=== PATIENT | male | born 1960 | race Caucasian/White ===

== ENCOUNTER → 2016-12-01 | Outpatient (CLI) | payer MEDICARE, BC ==
--- NOTE | 2016-12-01 11:34 | ECHOS ---
DATE OF SERVICE: 12/01/2016 AGE: 55Y SEX: M HT: 66' WT: 250 lbs. Protocol North: X Others: Stress Echo Stage: 2 Dur. of Exercise: 4:00 *Heart Rate Blood Pressure *Rest: 98 Rest: 102/67 * *Max. Achieved: 147 Maximum BP: 186/91 85% PMHR: 139 100% PMHR: 163 *METS: 5.8 INDICATIONS: Chest pain. MEDICATIONS: Aspirin, Spiriva, Dulera, metformin, glimepiride, amlodipine, losartan, amoxicillin, hydroxyurea. CLINICAL INFORMATION: Chest pain, hypertension, diabetes and family history of coronary artery disease, COPD, resting ECG showed moderate exogenous obesity. Resting ECG shows sinus rhythm, rate of 98 beats per minute, RI interval of 0.16, QRS 0.08, normal ST-T waves. Utilizing a standard North protocol, a symptom-limited treadmill test was performed. Patient exercised for total of 4 minutes, attained a peak heart rate of 147 beats per minute, which is approximately 90% of predicted functional heart rate without any chest pain or pressure. Exercise test was terminated because of fatigue and shortness of breath. No ST segment deviations indicative of ischemia. Baseline images show normal thickening and contractility. Postexercise images shows improved contractility and thickening except for basal inferior wall shows hypokinesis suggestive of stress-induced ischemia. Clinical correlation is suggested. Patient also has a limited exercise capacity. IMPRESSION: 1. Small area of basal segment, which is hypokinetic and post exercise suggestive of underlying ischemia. Clinical correlation is suggested. 2. Patient has very limited exercise capacity, exercised on the North protocol only for 4 minutes, which represents approximately mid-activity of about 5 METs.
== END | disposition home or self-care (01) ==
LOC: RADNMMAIN 09:53
PROVIDERS: ATTEND Family Medicine
DX: R07.89 Other chest pain (principal)
CPT/HCPCS: 93017; C8928; Q9957; 93350

== ENCOUNTER → 2018-01-18 | Outpatient (CLI) | payer MEDICARE, BC ==
--- NOTE | 2018-01-18 14:55 | MR ---
EXAMINATION TYPE: MR shoulder LT wo con DATE OF EXAM: 01/18/2018 COMPARISON: NONE HISTORY: Left shoulder pain TECHNIQUE: Multiplanar, multisequence imaging of the left shoulder is performed without contrast. FINDINGS: Rotator Cuff: There is abnormal thickening of the rotator cuff with abnormal increased signal within the substance of the rotator cuff, partial thickness undersurface or rim rent tear of the rotator cuf f tendon near its insertion. Acromioclavicular Joint: Hypertrophic change of the acromioclavicular joint causes mass effect on the musculotendinous junction of supraspinatus, there is a distal acromial spur. Glenohumeral Joint: Intact. Some mild arthropathy is present, there is hypertrophic change of the hum eral head Labrum: Superior labrum is somewhat irregular in appearance, some linear increased signal on T2-weigh thony sequences is present within the substance could be indicative of SLAP lesion or possibly degenera tive fraying. Biceps Tendon: Long head of biceps tendon shows a normal position in the bicipital groove. Small amou nt of fluid present around the tendon Bone marrow signal: There is pseudocyst formation in the humeral head anteriorly Other: Fluid signal is present in the subacromial subdeltoid bursa IMPRESSION: Tendinopathy, partial-thickness tear of the rotator cuff as described, correlate for impingement. Add itional findings above.
== END ==
LOC: RADMRIMAIN 10:27
PROVIDERS: ATTEND Family Medicine
DX: M75.112 Incomplete rotator cuff tear or rupture of left shoulder, not specified as traumatic (principal); M67.922 Unspecified disorder of synovium and tendon, left upper arm

== ENCOUNTER → 2018-03-29 | Outpatient (CLI) | payer MEDICARE, BC ==
--- NOTE | 2018-03-29 15:39 | XR ---
Cervical spine HISTORY: Neck pain 5 views of the cervical spine correlated to MRI cord survey dated 07/29/2011 There is multilevel spondylosis. Loss of disc height present at C4-5, C5-6. Cervical vertebral bodies show preserved height and alignment. There is multilevel facet arthropathy present. Mild foraminal e ncroachment suspected at C5-6 bilaterally, right-sided C4-5 due to lateral extension of endplate disc complexes. IMPRESSION: Degenerative disc disease as described, consider cervical MRI.
== END | disposition home or self-care (01) ==
LOC: RADXRMAIN 13:02
PROVIDERS: ATTEND Nurse Practitioner
DX: M50.321 Other cervical disc degeneration at C4-C5 level (principal)
CPT/HCPCS: 72050

== ENCOUNTER → 2018-07-27 | Outpatient (CLI) | payer MEDICARE, BC ==
--- NOTE | 2018-07-27 08:53 | MR ---
MRI CERVICAL SPINE: CLINICAL HISTORY: Cervicalgia per order. Neck pain into right arm for 13 months per patient. TECHNIQUE: Multiplanar, multisequence imaging of the cervical spine is performed without IV contrast. COMPARISON: MRI spinal cord survey July 29, 2011 cervical spine x-ray March 29, 2018.. FINDINGS: Sagittal images of the cervical spine show the craniocervical junction to remain within nor mal limits. The cervical and upper thoracic spinal cord remains normal in course, caliber, and signa l. There is stable slight grade 1 retrolisthesis of C5 on C6. The vertebral body heights remain norm al. Mild disc space narrowing C4-C5 level is present. More moderate disc space narrowing C5-C6 level is noted . Posterior disc herniations at C3-C4 through C5-C6 level are present on sagittal images. Mi ld anterior spurring in the mid cervical spine is present. The bone marrow signal intensity is overal l heterogeneous with small hemangioma at C6 vertebral body level. Axial images show C2-C3 level to appear within normal limits. Axial images at the C3-C4 level shows central disc protrusion effacing anterior thecal sac, there is asymmetric mild to moderate left-sided neural foraminal narrowing due to uncovertebral facet degenera tive change. Axial images at C4-C5 level show broad-based posterior disc protrusion effacing anterior thecal sac, there is uncovertebral facet degenerative changes worse on the left, there is moderate to advanced le ft-sided neural foraminal narrowing and mild to moderate right-sided neural foraminal narrowing noted . Axial images at the C5-C6 level show spondylolisthesis and central disc protrusion effacing anterior thecal sac up to ventral surface of spinal cord on axial image 25, in addition there is a foraminal d isc herniation causing asymmetric moderate to advanced left-sided neural foraminal narrowing and same image. Right-sided neural foramina shows mild to moderate narrowing. Axial images at the C6-C7 and C7-T1 levels are felt within normal limits. IMPRESSION: Multilevel degenerative changes in the upper to mid cervical spine as detailed above with most prominent findings noted at C5-C6 level.
== END | disposition home or self-care (01) ==
LOC: RADMRIMAIN 08:02
PROVIDERS: ATTEND Family Medicine
DX: M47.812 Spondylosis without myelopathy or radiculopathy, cervical region (principal)
CPT/HCPCS: 72141

== ENCOUNTER → 2018-09-25 | Outpatient (CLI) | payer MEDICARE, BC ==
[2018-09-25 12:34] VITALS: BP 129/85; PULSE 110; RESP 16; TEMP 98.1
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
== END ==
LOC: PNWHC3 12:16
PROVIDERS: ATTEND Hospitalist
DX: M54.12 Radiculopathy, cervical region (principal); I10 Essential (primary) hypertension; E11.9 Type 2 diabetes mellitus without complications; J44.9 Chronic obstructive pulmonary disease, unspecified; M19.90 Unspecified osteoarthritis, unspecified site; Z87.891 Personal history of nicotine dependence; Z79.82 Long term (current) use of aspirin; Z79.899 Other long term (current) drug therapy; Z79.84 Long term (current) use of oral hypoglycemic drugs; Z88.5 Allergy status to narcotic agent
CPT/HCPCS: 99211

== ENCOUNTER 2018-10-08 07:35 | Day surgery (SDC) | payer MEDICARE, BC ==
[2018-10-03 13:51] VITALS: BMI 36.3
[2018-10-08 08:17] VITALS: RESP 16; TEMP 96.6
[2018-10-08] MEDS ORDERED: LACTATED RINGERS 1,000 ML IV ONE (08:18)
[2018-10-08] MEDS ORDERED: LIDOCAINE 1% 20 ML VIAL (10MG/ML) FOR IV START INTRADERMA ONE (08:18)
[2018-10-08 08:19] LABS: Glucose,Whole Blood 152 mg/dL (75-99)
--- NOTE | 2018-10-08 09:34 | P.PCN ---
Date of Procedure: 10/08/18 Procedure(s) Performed: . PROCEDURE 1. Cervical epidural steroid injection under fluoroscopic guidance, C7-T1 2. Cervical epidurogram. PREOPERATIVE DIAGNOSIS: 1- Cervical radiculopathy. POSTOPERATIVE DIAGNOSIS: : 1-Cervical radiculopathy. ANESTHESIA: Local anesthesia with lidocaine 1 % , and moderate sedation, with Versed 2 mg and Fentanyl 50 mcg. EBL 0 PROCEDURE INDICATION: The patient with neck pain and radiculitis unresponsive to conservative treatment consents for procedure. PROCEDURE DESCRIPTION / TECHNIQUE: The patient was seen and identified in the preoperative area. Risks, benefits, complications, including but not limited to infections ,bleeding , allergic reactions to the medications ,and not complete pain releife, and alternatives were discussed with the patient, the patient agreed to proceed with the procedure and signed the consent. Patient was taken to the OR and time out was completed. The patient was placed in the prone position on the procedure table. A pillow was placed under the patients chest to increase the cervical interlaminar space. The cervical area was prepped and draped in the usual sterile fashion. Vital signs were closely monitored during the procedure. Conscious sedation was used during the procedure to decrease patients anxiety. Using anterior-posterior fluoroscopy, the C7-T1 interlaminar space was identified and the skin over this site was marked and then infiltrated with 1% lidocaine subcutaneously. Subsequently, a 20-gauge 3-1/2-inch Tuohy epidural needle was inserted and advanced toward the epidural space by means of the `` hanging-drop technique and guided by AP and lateral fluoroscopy. The correct needle position in the epidural space was verified with the injection of 2 mL of the water soluble contrast dye Isovue-200 and observing an excellent epidurogram with the epidural spread of the dye, after negative aspiration for blood and CSF and in the absence of paresthesias. Again after negative aspiration, mixture containing 10 mg Dexamethasone and 2 ml of preservative- free normal saline injected and a washout of epidurogram was seen. Needle was withdrawn intact, skin was cleansed, and bandages were applied. Complications= none. Disposition= patient was placed in supine position and transferred to the recovery room area in stable condition and there was no evidence of upper or lower extremity motor or sensory deficit after the procedure patient was discharged from recovery room after discharge criteria met and home discharge instructions was given by the staff and patient will follow with the pain clinic in 2-4 weeks
[2018-10-08] MEDS ORDERED: IV FLUID CONTINUATION 1,000 ML IV ONE (09:36)
[2018-10-08 09:55] VITALS: BP 115/51; PULSE 86
--- NOTE | 2018-10-08 11:02 | FL ---
Fluoroscopy HISTORY: Pain 5 seconds fluoroscopy time supplied to the referring clinician. 1 intraoperative C-arm images docume nt the procedure. See dictated report from anesthesia.
== END 2018-10-08 10:11 | disposition home or self-care (01) ==
LOC: ORPAIN 07:35
PROVIDERS: ATTEND Specialist
DX: M54.12 Radiculopathy, cervical region (principal); Z88.5 Allergy status to narcotic agent
CPT/HCPCS: 62321; J2250; J1100; J3010; Q9966; 62323; 99152

== ENCOUNTER 2018-10-22 08:00 | Day surgery (SDC) | payer MEDICARE, BC ==
[2018-10-16 12:41] VITALS: BMI 36.3
[2018-10-22] MEDS ORDERED: SODIUM CHLORIDE 0.9% 500 ML 500 ML IV SCH (08:30)
[2018-10-22] MEDS ORDERED: LIDOCAINE 1% 20 ML VIAL (10MG/ML) FOR IV START INTRADERMA ONE (08:40)
[2018-10-22] MEDS ORDERED: LACTATED RINGERS 1,000 ML IV ONE (08:40)
[2018-10-22 08:44] LABS: Glucose,Whole Blood 180 mg/dL (75-99)
[2018-10-22 08:45] VITALS: RESP 16; TEMP 97.2
--- NOTE | 2018-10-22 08:52 | P.GSHP ---
History of Present Illness H&P Date: 10/22/18 57-year-old male scheduled for cervical epidural steroid injection. Pain is 6 out of 10 in severity. He has radicular pain bilateral extremities. Physical Exam : CVS: Regular rate and rhythm, no peripheral edema Pulmonary: Nonlabored, no wheezing Plan: Epidural steroid injection today. Past Medical History Past Medical History: COPD, Diabetes Mellitus, Hypertension, Sleep Apnea/CPAP/BIPAP Additional Past Medical History / Comment(s): USES C-PAP MACHINE, STATES HE SEES DR VIEIRA FOR HIS WBC'S., NECK PAIN. History of Any Multi-Drug Resistant Organisms: None Reported Past Surgical History: Joint Replacement, Orthopedic Surgery Additional Past Surgical History / Comment(s): BONE MARROW BX. ORIF RT KNEE X3., TOTAL RIGHT HIP, PAIN CLINIC PROCEDURES Past Anesthesia/Blood Transfusion Reactions: No Reported Reaction Smoking Status: Current some day smoker - Past Family History Mother Family Medical History: Cancer Additional Family Medical History / Comment(s): BREAST CANCER Father Additional Family Medical History / Comment(s): BRAIN ANEURYSM Medications and Allergies Home Medications Medication Instructions Recorded Confirmed Type Aspirin 81 mg PO DAILY 06/05/14 10/16/18 History Mometasone/Formoterol [Dulera 200 2 puff INHALATION BID 06/05/14 10/16/18 History Mcg/5 Mcg Inhaler] Tiotropium 18 Mcg/Puff [Spiriva] 1 puff INHALATION DAILY 06/05/14 10/16/18 History amLODIPine BESYLATE [Amlodipine 5 mg PO AC-SUPPER 06/05/14 10/16/18 History Besylate] metFORMIN HCL [Glucophage] 1,000 mg PO BID 06/06/14 10/16/18 History Hydroxyurea [Hydrea] 50 mg PO TID 06/20/14 10/16/18 History Exenatide Microspheres [Bydureon 2 mg SQ DAILY 09/25/18 10/16/18 History Pen] Losartan/Hydrochlorothiazide 1 each PO DAILY 09/25/18 10/16/18 History [Losartan-Hctz 100-25 mg Tab] Pregabalin [Lyrica] 75 mg PO BID 09/25/18 10/16/18 History Albuterol Inhaler [Ventolin Hfa 1 - 2 puff INHALATION RT-Q6H PRN 10/03/18 10/16/18 History Inhaler] Glimepiride [Amaryl] 8 mg PO PC-SUPPER 10/03/18 10/16/18 History Allergies Allergy/AdvReac Type Severity Reaction Status Date / Time morphine AdvReac Rash/Hives Verified 10/16/18 12:36
--- NOTE | 2018-10-22 09:26 | P.PCN ---
Date of Procedure: 10/22/18 Description of Procedure: PROCEDURE 1. Cervical epidural steroid injection under fluoroscopic guidance, C7-T1 #2 2. Cervical epidurogram. PREOPERATIVE DIAGNOSIS: 1- Cervical radiculopathy. POSTOPERATIVE DIAGNOSIS: : 1-Cervical radiculopathy. ANESTHESIA: Local anesthesia with lidocaine 1 % , and moderate sedation, with Versed 2 mg and Fentanyl 50 mcg. EBL 0 PROCEDURE INDICATION: The patient with neck pain and radiculitis unresponsive to conservative treatment consents for procedure. PROCEDURE DESCRIPTION / TECHNIQUE: The patient was seen and identified in the preoperative area. Risks, benefits, complications, including but not limited to infections ,bleeding , allergic reactions to the medications ,and not complete pain releife, and alternatives were discussed with the patient, the patient agreed to proceed with the procedure and signed the consent. Patient was taken to the OR and time out was completed. The patient was placed in the prone position on the procedure table. A pillow was placed under the patients chest to increase the cervical interlaminar space. The cervical area was prepped and draped in the usual sterile fashion. Vital signs were closely monitored during the procedure. Conscious sedation was used during the procedure to decrease patients anxiety. Using anterior-posterior fluoroscopy, the C7-T1 interlaminar space was identified and the skin over this site was marked and then infiltrated with 1% lidocaine subcutaneously. Subsequently, a 20-gauge 3-1/2-inch Tuohy epidural needle was inserted and advanced toward the epidural space by means of the ``hanging-drop technique and guided by AP and lateral fluoroscopy. The correct needle position in the epidural space was verified with the injection of 2 mL of the water soluble contrast dye Isovue-200 and observing an excellent epidurogram with the epidural spread of the dye, after negative aspiration for blood and CSF and in the absence of paresthesias. Again after negative aspiration, mixture containing 10 mg Dexamethasone and 2 ml of preservative- free normal saline injected and a washout of epidurogram was seen. Needle was withdrawn intact, skin was cleansed, and bandages were applied. Complications= none. Disposition= patient was placed in supine position and transferred to the recovery room area in stable condition and there was no evidence of upper or lower extremity motor or sensory deficit after the procedure patient was discharged from recovery room after discharge criteria met and home discharge instructions was given by the staff and patient will follow with the pain clinic in 2-4 weeks
[2018-10-22] MEDS ORDERED: IV FLUID CONTINUATION 1,000 ML IV ONE (09:50)
--- NOTE | 2018-10-22 09:56 | FL ---
EXAMINATION TYPE: FL guided pain mgmt statistic DATE OF EXAM: 10/22/2018 CLINICAL HISTORY: Neck pain. TECHNIQUE: Fluoroscopy. COMPARISON: None. FINDINGS: Fluoroscopic guidance was provided during pain relief procedure performed by Dr. Weeks . A total of 39 seconds of fluoroscopic time was utilized during the procedure and 1 spot images are a cquired. Images acquired shows needle localization of the cervical spine. IMPRESSION: As Above.
[2018-10-22 10:12] VITALS: BP 124/72; PULSE 78
== END 2018-10-22 10:18 | disposition home or self-care (01) ==
LOC: ORPAIN 08:00
PROVIDERS: ATTEND Anesthesiology
DX: M54.12 Radiculopathy, cervical region (principal); J44.9 Chronic obstructive pulmonary disease, unspecified; E11.9 Type 2 diabetes mellitus without complications; I10 Essential (primary) hypertension; G47.30 Sleep apnea, unspecified; Z99.89 Dependence on other enabling machines and devices; Z96.641 Presence of right artificial hip joint; Z80.3 Family history of malignant neoplasm of breast; F17.200 Nicotine dependence, unspecified, uncomplicated; Z79.84 Long term (current) use of oral hypoglycemic drugs; Z79.82 Long term (current) use of aspirin; Z79.899 Other long term (current) drug therapy; Z88.5 Allergy status to narcotic agent
CPT/HCPCS: 62321; J2250; J1100; J3010; Q9966; 99152

== ENCOUNTER 2018-11-06 07:53 | Day surgery (SDC) | payer MEDICARE, BC ==
[2018-10-30 10:52] VITALS: BMI 37.1
[2018-11-06 08:09] VITALS: RESP 16; TEMP 96.3
[2018-11-06 08:14] LABS: Glucose,Whole Blood 157 mg/dL (75-99)
--- NOTE | 2018-11-06 08:36 | P.PCN ---
Date of Procedure: 11/06/18 Operative Findings: . PROCEDURE 1. Cervical epidural steroid injection under fluoroscopic guidance, C7-T1 2. Cervical epidurogram. PREOPERATIVE DIAGNOSIS: 1- Cervical Degenerative Disc Diseases 2- Cervical radiculopathy., 3-cervical spondylosis with cervical Facet arthropathy without myelopathy POSTOPERATIVE DIAGNOSIS: : 1- Cervical Degenerative Disc Diseases , 2- Cervical radiculopathy. 3-,cervical spondylosis with cervical Facet arthropathy without myelopathy ANESTHESIA: Local anesthesia with 1% lidocaine EBL 0 PROCEDURE INDICATION: The patient with neck pain and radiculitis unresponsive to conservative treatment consents for procedure. PROCEDURE DESCRIPTION / TECHNIQUE: The patient was seen and identified in the preoperative area. Risks, benefits, complications, including but not limited to infections ,bleeding , allergic reactions to the medications ,and not complete pain releife, and alternatives were discussed with the patient, the patient agreed to proceed with the procedure and signed the consent. Patient was taken to the OR and time out was completed. The patient was placed in the prone position on the procedure table. A pillow was placed under the patients chest to increase the cervical interlaminar space. The cervical area was prepped and draped in the usual sterile fashion. Vital signs were closely monitored during the procedure. Conscious sedation was used during the procedure to decrease patients anxiety. Using anterior-posterior fluoroscopy, the C7-T1 interlaminar space was identified and the skin over this site was marked and then infiltrated with 1% lidocaine subcutaneously. Subsequently, a 20-gauge 3-1/2-inch Tuohy epidural needle was inserted and advanced toward the epidural space by means of the [id number] technique and guided by AP and lateral fluoroscopy. The correct needle position in the epidural space was verified with the injection of 1 mL of the water soluble contrast dye [id number]-180 and observing an excellent epidurogram with the epidural spread of the dye, after negative aspiration for blood and CSF and in the absence of paresthesias. Again after negative aspiration, mixture containing 10 mg Dexamethasone and 2 ml of preservative- free normal saline injected and a washout of epidurogram was seen. Needle was withdrawn intact, skin was cleansed, and bandages were applied. Complications= none. Disposition= patient was placed in supine position and transferred to the recovery room area in stable condition and there was no evidence of upper or lower extremity motor or sensory deficit after the procedure patient was discharged from recovery room after discharge criteria met and home discharge instructions was given by the staff and patient will follow with the pain clinic in 2-4 weeks
[2018-11-06 08:58] VITALS: BP 131/86; PULSE 83
--- NOTE | 2018-11-06 09:00 | FL ---
Fluoroscopy HISTORY: Pain 12 seconds fluoroscopy time supplied to the referring clinician. 1 intraoperative C-arm images docum ent the procedure. See dictated report from anesthesia.
== END 2018-11-06 09:08 | disposition home or self-care (01) ==
LOC: ORPAIN 07:53
PROVIDERS: ATTEND Hospitalist
DX: M50.10 Cervical disc disorder with radiculopathy, unspecified cervical region (principal); M47.22 Other spondylosis with radiculopathy, cervical region
CPT/HCPCS: 62321; J1100; Q9966

== ENCOUNTER → 2019-01-01 | Outpatient (CLI) | payer MEDICARE, BC ==
[2019-01-01 12:47] VITALS: BP 121/57; PULSE 94; RESP 18
--- NOTE | 2019-01-01 12:51 | P.PN ---
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 The patient is status post 3 cervical epidural steroid injections which has helped his pain significantly and his pain score today is 1 out of 10 and also his numbness has improved in his left hand. The patient used to be on Lyrica however he cannot afford it any more. He still takes ibuprofen as needed for his pain. Today, pt denies new-onset weakness, bowel/bladder incontinence, or any other signs or symptoms of cauda equina syndrome. There are no signs of acute intoxication, and no indications of medication diversion or overuse. In addition to above, 13-point review of systems is also negative for chest pain, shortness of breath, changes in vision, changes in hearing, new onset weakness, abdominal pain, diarrhea, extreme fatigue, malaise, fever, skin changes, homicidal or suicidal ideation, or bowel or bladder incontinence. Vital Signs: Reviewed in EMR Gen: AAOx3, NAD HEENT: PERRLA,hearing grossly normal Pulm: resp unlabored,CTA Heart:S1,S2, No Mur Neck: supple, trachea midline Neuro exam of the upper extremities: Normal muscle strength and biceps tendon reflexes, absent triceps reflexes bilaterally. Straight leg raising test: Range of motion of the cervical spine: Normal Tenderness in the paravertebral musculature: No tenderness in the cervical paravertebral musculature Neuro: CN II-XII grossly intact, Imaging: Reviewed in EMR/chart Assessment: Left cervical radiculopathy Morbid obesity Diabetes Plan: 1. Explanation: Opioid and psychological risk scores were reviewed. Diagnoses, prognoses, and multiple treatment options including but not limited to physical therapy, interventional therapies, adjuvant medical therapies, narcotic medication therapies, and surgery were discussed with the patient and all questions were answered to the patient's satisfaction. 2. Opioid agreement: The patient is not receiving opioids 3. Counseling: The patient was counseled extensively on SMOKING CESSATION, BODY MASS INDEX, EXERCISE. Specifically, the patient was instructed regarding the importance of smoking cessation, obesity, and exercise in the context of both chronic pain and overall health. 4. Procedures: None at this point 5. Consultations: None 6. Investigations: None 7. Medications: May need to be on Neurontin if his pain comes back 8. Disposition: Return to clinic as needed 9. Maps were reviewed and were appropriate. Objective - Vital Signs Vital signs: Vital Signs Temp Pulse 94 01/01/19 12:38 Resp 18 01/01/19 12:38 BP 121/57 01/01/19 12:38 Pulse Ox 92 L 01/01/19 12:38 Intake & Output 12/31/18 01/01/19 01/01/19 18:59 06:59 18:59 Weight 102.058 kg
== END | disposition home or self-care (01) ==
LOC: PNWHC3 12:10
PROVIDERS: ATTEND Anesthesiology
DX: M54.12 Radiculopathy, cervical region (principal); E66.01 Morbid (severe) obesity due to excess calories; E11.9 Type 2 diabetes mellitus without complications; Z68.35 Body mass index [BMI] 35.0-35.9, adult
CPT/HCPCS: 99211

== ENCOUNTER → 2019-08-15 | Outpatient (CLI) | payer MEDICARE, BC ==
[2019-08-15 12:32] VITALS: BP 115/78; PULSE 80; RESP 18
--- NOTE | 2019-08-16 09:30 | P.PAINPG ---
Subjective Progress Note Date: 08/15/19 This is a pleasant retired man with history of neck pain with radiation to the left arm with numbness in his left hand, diagnosed with cervical radiculopathy. The patient underwent 3 cervical epidural steroid injections in our clinic in October and November 2018. This helped his pain significantly lasting several months. He returns today for follow-up. He reports that he had 2 episodes of pain radiating from bilateral shoulders to bilateral arms and medial 3 fingers in July 2019, which woke him up from sleep, each episode lasted 5-10 minutes. Since then, he has had no further episodes and currently does not have any pain complaints. At the time of these episodes, he did report numbness and tingling in bilateral hands. He currently takes gabapentin 300 mg twice a day and Motrin 800 mg twice a day, which he obtains from his primary care physician. He currently reports no numbness, weakness, tingling or pain. Today, pt denies new-onset weakness, bowel/bladder incontinence, or any other signs or symptoms of cauda equina syndrome. There are no signs of acute intoxication, and no indications of medication diversion or overuse. In addition to above, 13-point review of systems is also negative for chest pain, shortness of breath, changes in vision, changes in hearing, new onset weakness, abdominal pain, diarrhea, extreme fatigue, malaise, fever, skin changes, homicidal or suicidal ideation, or bowel or bladder incontinence. Physical exam: Vitals: Reviewed in EMR GENERAL: Well appearing, in no acute distress PSYCH: Mood and affect is appropriate. Awake, alert, and oriented SKIN: Skin color, texture, turgor normal, no rashes or lesions HEENT: Normocephalic, atraumatic. EOM intact CV: No pedal edema RESP: Respirations are unlabored, no audible wheezing GI: Abdomen non-distended MUSCULOSKELETAL: Bilateral upper extremity strength is normal and symmetric. No atrophy or tone abnormalities are noted. Neck: No pain to palpation over the cervical paraspinous muscles. Spurling negative, Axial Loading Test negative, Balderas's sign negative. No pain with neck flexion, extension, or lateral flexion. No obvious deformity or signs of trauma. Normal cervical lordotic curve and normal cervical spine range of motion Extremities: Peripheral joint ROM is full and pain free without obvious instability or laxity in all four extremities. No edema or skin discolorations noted. Gait: Gait is normal NEUR: Bilateral upper extremity coordination and muscle stretch reflexes are physiologic and symmetric. Negative clonus bilaterally. No loss of sensation is noted. Imaging: Reviewed in EMR/chart Assessment: Left cervical radiculopathy in the past, which was treated with cervical epidural steroid injections with good benefit Morbid obesity Diabetes Plan: 1. Explanation: We discussed that since patient does not currently have any pain complaints, he would not benefit from any procedure. I did financial health counselor him that if the pain were to return, he should call our clinic. I also counseled him that if he experienced bowel or bladder incontinence, sudden onset weakness or numbness and tingling he should report to an emergency room. 2. Opioid agreement: The patient is not receiving opioids 3. Counseling: The patient was counseled on the importance of BODY MASS INDEX, EXERCISE. Specifically, the patient was instructed regarding the importance of obesity, and exercise in the context of both chronic pain and overall health. 4. Procedures: None at this point 5. Consultations: Patient was given a referral for cervical physical therapy, particularly cervical traction. 6. Investigations: None 7. Medications: No changes, managed by primary care physician 8. Disposition: Return to clinic as needed PQRS Measure Charge Sheet PQRS Narrative: Smoking Status Former smoker Pain Intensity [None] 0 Scale Used Numeric (1 - 10) Hx Alcohol Use (MH) No Home Medications: Ambulatory Orders Aspirin 81 mg PO DAILY 06/05/14 Tiotropium 18 Mcg/Puff [Spiriva] 1 puff INHALATION DAILY 06/05/14 amLODIPine BESYLATE [Amlodipine Besylate] 5 mg PO W/SUPPER 06/05/14 Hydroxyurea [Hydrea] 1,000 mg PO W/SUPPER 06/20/14 Albuterol Inhaler [Ventolin Hfa Inhaler] 1 - 2 puff INHALATION Q6HR PRN 10/03/18 Glimepiride [Amaryl] 8 mg PO W/SUPPER 10/03/18 Hydroxyurea 500 mg PO QAM 10/30/18 Mometasone/Formoterol [Dulera 200 Mcg/5 Mcg Inhaler] 2 puff INHALATION QAM 10/30 Exenatide Microspheres [Bydureon Pen] 1 injection SQ MATA 01/01/19 Ibuprofen [Motrin] 800 mg PO BID 01/01/19 Tazarotene [Tazorac] 1 applicate TOPICAL Q72H 01/01/19 Gabapentin [Neurontin] 300 mg PO BID 08/12/19 Hydrochlorothiazide [Hydrodiuril] 25 mg PO DAILY 08/12/19 Losartan Potassium 100 mg PO DAILY 08/12/19 metFORMIN HCL 1,000 mg PO BID 08/12/19 Controlled Substance Measures - Controlled Substance Measures Is patient prescribed a controlled substance at discharge?: No
== END ==
LOC: PNWHC3 11:57
PROVIDERS: ATTEND Anesthesiology
DX: M54.12 Radiculopathy, cervical region (principal); E66.01 Morbid (severe) obesity due to excess calories; E11.9 Type 2 diabetes mellitus without complications; Z87.891 Personal history of nicotine dependence; Z79.899 Other long term (current) drug therapy; Z79.84 Long term (current) use of oral hypoglycemic drugs; Z79.1 Long term (current) use of non-steroidal anti-inflammatories (NSAID); Z79.82 Long term (current) use of aspirin
CPT/HCPCS: 99211

== ENCOUNTER → 2020-04-08 | Outpatient (CLI) | payer MEDICARE, BC ==
[2020-04-08 15:32] VITALS: BP 119/69; PULSE 87; RESP 14
--- NOTE | 2020-04-10 18:18 | P.PN ---
Subjective Progress Note Date: 04/08/20 This is follow-up visit for this 59 years old male with history of neck pain he stateswas cervical degenerative disc disease and cervical spondylosis with cervical facet arthropathy, and cervical radiculopathy, last year we had done a cervical epidural steroid injection which helped him significantly, recently he started having severe neck pain with radiation to the left upper extremity, associated with some numbness and tingling sensation , he denies any motor or sensory deficit he denies any change in the bowel movement or urination. He denies any fever or night sweats. Objective - Vital Signs Vital signs: Vital Signs Temp Pulse 87 04/08/20 15:17 Resp 14 04/08/20 15:17 BP 119/69 04/08/20 15:17 Pulse Ox 92 L 04/08/20 15:17 - Exam Physical Examinations : -Constitutiona : Cooperative , not in acute distress . -HEENT : nech : supple , no Lymphadenopathy , normal thyroid size . : eyes : no ptosis , no icterus, no photophobia . : ENT : normal of hearing , normal oropharynx , no Thrush . - Respiratory : Chest clear to auscultations Bilaterally , no wheezing , no Rhonchi . - Cardiovascula : regular rate and rhythem , S1 , S2 , no S3 , no S4. - Gastrointestina : abdomen soft no tenderness , bowel sounds , no organomegally . - Genitourinary : Defferred . - neurologic : Cranial nerve II to XII intact , no focal neurological deffecit . -psychatric : alert , oriented X 3 , appropriate affect , intact judgment and insight . -Lymphatic : no Lymphadenopathy . - musculoskeltal : Cervical Spine motor stregnth in the deltoid and biceps, normal right side , normal Left side motor stregnth biceps and the wrist extensors normal right side ,normal left side . motor stregnth in the triceps muscle . normal Right side , normal Left side deep tendon reflexes normal at the biceps , normal at Brachioradialis , normal at triceps. cervical facet loading test= Positive Bilaterally Spurling test= positive bilaterally. Neck distraction test= positive bilaterally. Laina sign= positive bilaterally. Multiple trigger point identified in the left side cervical paraspinal muscles on the left shoulder. Lumber spine moter stegnth lower extremities ,thigh and legs 5/5 Right side , 5/5 Left side Assessment and Plan Plan: Assessment and plan= neck pain secondary to cervical degenerative disc disease , cervical spondylosis with lumbar facet arthropathy, myofascial pain syndrome and cervical and left shoulder blade area . MAPS Reviwed and it was apropriate . Patient could benefit from cervical epidural steroid injection under fluoroscopy guidance at C7-T1 left paramedian approach At the same time we do trigger point left-sided cervical paraspinal and left shoulder blade area - PQRS measures = - Patient's medications are documented in the chart. -Tobacco use is negative and counseling.Given. -Patient's has not received pneumococcal vaccine. -Advanced care planning discussed, patient not eligible. -Opiate contract not signed. -Pain positive and follow-up visit/procedure is scheduled. -Patient's blood pressure measured ,and documented in the record ,and patient will follow up with the primary care. -Patient's weight was measured and body mass index [ ] above the normal limits and patient instructed to follow-up with the primary care physician. -Patient was not identified as an unhealthy alcohol user , Time with Patient: Less than 30
== END | disposition home or self-care (01) ==
LOC: PNWHC3 14:06
PROVIDERS: ATTEND Specialist
DX: G89.29 Other chronic pain (principal); M50.10 Cervical disc disorder with radiculopathy, unspecified cervical region; M47.22 Other spondylosis with radiculopathy, cervical region; M79.18 Myalgia, other site
CPT/HCPCS: 99211

== ENCOUNTER → 2020-04-23 | Day surgery (SDC) | payer MEDICARE, BC ==
[2020-04-21 09:56] VITALS: BMI 37.1
[~2020-04-23] MED LIST: LACTATED RINGERS 1,000 ML IV SCH
[2020-04-23 12:25] VITALS: BP 120/60; PULSE 75; RESP 16; TEMP 97.5
== END ==
LOC: ORPAIN 12:02
PROVIDERS: ATTEND Anesthesiology
DX: Z53.9 Procedure and treatment not carried out, unspecified reason (principal)

== ENCOUNTER 2020-06-16 11:01 | Day surgery (SDC) | payer MEDICARE, BC ==
[2020-06-16 11:21] VITALS: TEMP 97
[2020-06-16 11:21] LABS: Glucose,Whole Blood 130 mg/dL (75-99)
[2020-06-16] MEDS ORDERED: ROPIVACAINE 5MG/ML 20ML VIAL ONE (12:05)
[2020-06-16] MEDS ORDERED: SODIUM CHLORIDE 0.9% (PF) 10 ML VIAL ONE (12:05)
[2020-06-16] MEDS ORDERED: DEXAMETHASONE SOD PHOSPHATE 10 MG/ML 1 ML VIAL ONE (12:05)
[2020-06-16] MEDS ORDERED: IOPAMIDOL M200 10 ML VIAL ONE (12:05)
--- NOTE | 2020-06-16 12:25 | P.PCN ---
Date of Procedure: 06/16/20 Procedure(s) Performed: . PROCEDURE 1. Cervical epidural steroid injection under fluoroscopic guidance, C7-T1 (fluoroscopy images available in the radiology department ) 2. Cervical epidurogram. 3.trigger point injections left-sided cervical paraspinal muscles standstill trigger point and left side shoulder blade area time on trigger point injected ( total of 3 trigger point injected ) PREOPERATIVE DIAGNOSIS: 1- Cervical Degenerative Disc Diseases 2-cervical spondylosis with cervical Facet arthropathy without myelopathy . 3-myofascial pain syndrome and cervical paraspinal muscles on the left side and left shoulder blade area POSTOPERATIVE DIAGNOSIS: : Same as preoperative diagnoses ANESTHESIA: Local anesthesia with lidocaine 1 % 3 ml only EBL 0 PROCEDURE INDICATION: The patient with neck pain and radiculitis unresponsive to conservative treatment consents for procedure so exam was positive for multiple trigger point identified in the left-sided cervical paraspinal muscles and left shoulder blade area. PROCEDURE DESCRIPTION / TECHNIQUE: The patient was seen and identified in the preoperative area. Risks, benefits, complications, including but not limited to infections ,bleeding , allergic reactions to the medications ,and not complete pain releife, and alternatives were discussed with the patient, the patient agreed to proceed with the procedure and signed the consent. Patient was taken to the OR and time out was completed. The patient was placed in the prone position on the procedure table. A pillow was placed under the patients chest to increase the cervical interlaminar space. The cervical area was prepped and draped in the usual sterile fashion. Vital signs were closely monitored during the procedure. Conscious sedation was used during the procedure to decrease patients anxiety. Using anterior-posterior fluoroscopy, the C7-T1 interlaminar space was identified and the skin over this site was marked and then infiltrated with 1% lidocaine subcutaneously. Subsequently, a 20-gauge 3-1/2-inch Tuohy epidural n eedle was inserted and advanced toward the epidural space by means of the ``hanging-drop technique and guided by AP and lateral fluoroscopy. The correct needle position in the epidural space was verified with the injection of 2 mL of the water soluble contrast dye Isovue-200 and observing an excellent epidurogram with the epidural spread of the dye, after negative aspiration for blood and CSF and in the absence of paresthesias. Again after negative aspiration, mixture containing 20 mg Dexamethasone and 2 ml of preservative- free normal saline injected and a washout of epidurogram was seen. Needle was withdrawn intact, And after that the trigger point which was identified in the preop holding area each of them injected with ropivacaine 0.5% 3 ml using 25-gauge needle, injection done after negative aspiration under was no paresthesia during the injection, total of 3 trigger point injected to on the left side cervical paraspinal muscles and one on the left side shoulder blade area Complications= none. Disposition= patient was placed in supine position and transferred to the recovery room area in stable condition and there was no evidence of upper or lower extremity motor or sensory deficit after the procedure patient was discharged from recovery room after discharge criteria met and home discharge instructions was given by the staff and patient will follow with the pain clinic in 2-4 weeks
[2020-06-16 12:28] VITALS: BP 122/74; PULSE 74; RESP 16
--- NOTE | 2020-06-16 13:56 | FL ---
EXAMINATION TYPE: FL guided pain mgmt statistic DATE OF EXAM: 06/16/2020 FLUOROSCOPY Fluoroscopy time of 3 seconds was used during cervical epidural steroid injection. 1 image/s documen t/s the procedure.
== END 2020-06-16 12:40 | disposition home or self-care (01) ==
LOC: ORPAIN 11:01
PROVIDERS: ATTEND Specialist
DX: M50.10 Cervical disc disorder with radiculopathy, unspecified cervical region (principal); M47.22 Other spondylosis with radiculopathy, cervical region; M79.18 Myalgia, other site; Z79.82 Long term (current) use of aspirin
CPT/HCPCS: 62321; 20553; J1100; Q9966; J2795; 20552

== ENCOUNTER 2021-11-04 06:26 | Day surgery (SDC) | payer MEDICARE ==
[2021-11-01 13:24] VITALS: BMI 36.6
[~2021-11-04 06:26] MED LIST changes: +DEXAMETHASONE SOD PHOSPHATE 4 MG/ML 1 ML VIAL IV ONE; +MIDAZOLAM 2 MG/2 ML VIAL IV PRN; +ONDANSETRON 4 MG/2 ML VIAL IVP ONE; +Pre Op ABX Message 1 EACH MISC MISCELLANE ONE
[2021-11-04 07:23] LABS: Glucose,Whole Blood 110 mg/dL (75-99)
[2021-11-04] MEDS ORDERED: ROCURONIUM 10 MG/ML (5 ML VIAL) IV ONE (08:02)
[2021-11-04] MEDS ORDERED: NEOSTIGMINE 1 MG/ML 10 ML VIAL ONE (08:02)
[2021-11-04] MEDS ORDERED: MIDAZOLAM 2 MG/2 ML VIAL ONE (08:02)
[2021-11-04] MEDS ORDERED: LIDOCAINE 1% INJ 10MG/ML (20 ML MDV) ONE (08:02)
[2021-11-04] MEDS ORDERED: fentaNYL (PF) 50 MCG/ML 2 ML AMP ONE (08:02)
[2021-11-04] MEDS ORDERED: HYDROmorphone (PF) 1 MG/ML ONE (08:02)
[2021-11-04] MEDS ORDERED: GLYCOPYRROLATE 0.2 MG/ML 2 ML VIAL ONE (08:02)
[2021-11-04] MEDS ORDERED: PROPOFOL 10 MG/ML 20 ML VIAL IV ONE (08:02)
[2021-11-04] MEDS ORDERED: SUCCINYLCHOLINE CHLORIDE VIAL 200 MG/10 ML VIAL IV ONE (08:02)
[2021-11-04] MEDS ORDERED: KETAMINE 10 MG/ML 20 ML VIAL ONE (08:02)
[2021-11-04] MEDS ORDERED: PHENYLEPHRINE-0.9% NACL SYG 1,000 MCG/10 ML SYRINGE ONE (08:02)
[2021-11-04] MEDS ORDERED: SODIUM CHLORIDE 0.9% 100 ML with ceFAZolin 2 GM IV ONE ×2 (08:07)
[2021-11-04] MEDS ORDERED: BUPIVACAIN-EPI 0.25%-1:200,000 30 ML VIAL INTRAARTIC ONE (08:47)
[2021-11-04 09:32] VITALS: RESP 16; TEMP 96.8
[2021-11-04] MEDS: HYDROmorphone 0.5 MG/0.5 ML SYRINGE IVP PRN ×2 (09:40→10:05)
[2021-11-04] MEDS ORDERED: ONDANSETRON 4 MG/2 ML VIAL IVP ONE (10:00)
[2021-11-04] MEDS ORDERED: KETOROLAC 15 MG/ML 1 ML VIAL IVP ONE (10:08)
--- NOTE | 2021-11-04 10:40 | OP ---
OPERATIVE REPORT DATE OF PROCEDURE: 11/04/2021 SURGEON: Sonu Pruett M.D. [employer] MA[employer]GER: Charles Balderas PA-C PREOPERATIVE DIAGNOSIS: 1. Left shoulder full-thickness rotator cuff tear. 2. Left shoulder superior labral tear. 3. Left shoulder subacromial impingement. POSTOPERATIVE DIAGNOSIS: 1. Left shoulder full-thickness tear of the anterior supraspinatus, 1 x 1 cm. 2. Left shoulder type 2 superior labral tear. 3. Left shoulder traumatic rupture, intra-articular long head of the biceps tendon. 4. Left shoulder type 3 anterolateral acromial spur. PROCEDURE PERFORMED: 1. Left shoulder arthroscopic rotator cuff repair, 1 x 1 cm tear of the supraspinatus. 2. Left shoulder arthroscopic acromioplasty. 3. Left shoulder arthroscopic anterior, superior and posterior labral debridement. ANESTHESIA: General endotracheal. ESTIMATED BLOOD LOSS: Minimal. TOURNIQUET: None. DRAINS: None. COMPLICATIONS: None apparent. DISPOSITION: Post-Anesthesia Care Unit. EXAMINATION UNDER ANESTHESIA OF THE LEFT SHOULDER: Elevation to 160 degrees. External rotation at the side 45 degrees. External rotation at 90 degrees. 90 degrees. Internal rotation at 90 degrees 60 degrees. Sulcus less than 1 cm. Anterior translation glenoid face, posterior translation glenoid face. ARTHROSCOPIC FINDINGS, LEFT SHOULDER: 1. Superior labrum, type 2 superior labral tearing of both the anterior and posterior of the biceps anchor. The long head of the biceps tendon traumatically ruptured and was absent intra-articular. The labrum was quite macerated. 2. Anterior inferior labrum normal glenoid labral attachment. 3. Posterior labrum tearing of the posterior labrum from the 9 o'clock position to the 12 o'clock position on the glenoid face. 4. Humeral head cartilage was normal. 5. Rotator cuff small full-thickness tear of the anterior supraspinatus 1 x 1 cm with minimal retraction. 6. Glenoid face cartilage was normal. 7. Subacromial space with significant fraying of the undersurface of the coracoacromial ligament with a type 3 anterolateral acromial spur. INDICATIONS: Nestor is a 60-year-old male with left shoulder pain. He has noted weakness as well as significant pain in the shoulder. He has been through a fairly significant course of nonoperative treatment up to this point. Physical examination and MRI reveal tearing of the superior labrum as well as rotator cuff tear. At this point in time he feels that he has failed nonoperative treatment and would like to proceed with operative intervention. A long discussion was held with the patient with regard to treatment options. The risks of the procedure were all discussed with him in detail. These risks included but were not limited to risk of infection, nerve damage, bleeding, pain, and a small risk of deep vein thrombosis which could lead to fatal pulmonary embolism. Further risks include lack of healing of the rotator cuff and the possibility for biceps contour change with a biceps tenotomy. The patient understands the operation as well as the fact that there is no guarantee of improvement of his symptoms. Appropriate informed consent was obtained. DESCRIPTION OF PROCEDURE: The patient was identified in the preoperative holding area. He was given 2 grams of Ancef IV for prophylactic purposes. He was then transported to the operative suite. He was placed supine on the operating room table. The patient was then intubated endotracheally and received general anesthesia throughout the operative procedure. Examination under anesthesia was then performed. The findings are noted above. The patient was then placed into the beach chair position, well padded in preparation for surgery. Great care was taken to ensure that his cervical spine was in neutral alignment, well padded and maintained that way throughout the operative procedure. Great care was also taken to ensure that his legs were appropriately padded as well. The patient's left upper extremity was then prepped and draped in the usual sterile fashion. A standard surgical pause was undertaken to ensure that appropriate preoperative antibiotics had been given and that we were operating on the correct site. All staff in the room were in agreement and we proceeded. The acromion as well as the AC joint and coracoid were marked with a surgical pen. The skin over the anticipated portal sites were also marked with a surgical pen. The skin of the anticipated port sites was then injected with 0.25% Marcaine with epinephrine. I then proceeded to make the posterior portal. A 30-degree arthroscope was introduced into the glenohumeral joint through this portal. The arthroscopic pump pressure was set at 40 mmHg and maintained at that level throughout the entire case. Next, utilizing an 18-gauge spinal needle to localize the placement, the anterior superior portal was made. This was made just underneath the biceps tendon, high in the rotator interval. A small 5.75 mm cannula was then placed. The outflow was then done through this cannula. Diagnostic arthroscopy of the shoulder was then performed. The findings are noted above. Great care was taken to probe the superior labral complex as well as the biceps anchor. The biceps anchor was not firmly attached. He had a previous traumatic rupture of the long head of the biceps tendon; it was absent from intra-articular. The superior labrum was frayed greatly. This extended both anteriorly and posteriorly to the previous biceps anchor. I then proceeded to debride the torn loose tissue of the superior and posterior labrum. This was debrided anteriorly, superiorly and posteriorly back to stable tissue. I then inspected the rotator cuff from intra-articular. He did have a full-thickness tear of the anterior aspect of the supraspinatus. This tear was debrided very gently from intra-articular utilizing a synovial shaver. At this point in time no further work was deemed necessary from intra-articular. The arthroscope was removed from the glenohumeral joint, and utilizing the same posterior skin incision, it was placed in the subacromial space. Next, utilizing an 18-gauge spinal needle to topically localize the placement, a lateral portal was made under direct visualization. A subacromial bursectomy was then performed utilizing the synovial shaver as well as the ArthroCare wand. There was significant fraying of the undersurface of the coracoacromial ligament. This was then taken down utilizing the ArthroCare wand. This exposed an underlying type 3 anterolateral acromial spur. I then proceeded with acromioplasty. Utilizing the synovial shaver in a pennie-type fashion, the acromioplasty was completed. When the acromioplasty was complete, the arthroscope was placed in the lateral portal and the shaver placed posteriorly to ensure that it was adequate and coplanar with the posterior aspect of the acromion. I then proceeded with the rotator cuff tear. He had a small full-thickness tear of the anterior leading edge of the supraspinatus. This measured approximately 1 x 1 cm. The footprint of the greater tuberosity was then debrided of all devitalized tissue utilizing the synovial shaver as well as the ArthroCare wand. I then performed a light decortication of the greater tuberosity utilizing the synovial shaver in a pennie-type fashion. This provided a nice bleeding surface with the repair. I then placed small microfracture holes along the articular margin to again enhance the healing of the repair. I then utilized a scJemstepion suture-passer and placed an Arthrex FiberTape suture in an inverted horizontal mattress fashion. These sutures were shuttled out through the lateral portal. I then proceeded with placement of the anchor. The awl was placed in the most anterolateral aspect of the footprint. This was just posterior to the bicipital groove. FiberTape sutures were shuttled through an Arthrex 4.75 mm BioComposite anchor and then the anchor was placed after tensioning the sutures appropriately. The anchor had an excellent purchase in bone. This brought the rotator cuff tear down very nicely in the most anterolateral aspect of the footprint. The FiberTape sutures were cut flush with the anchor. The repair was then probed. The rotator cuff was then repaired down very nicely to the most lateral aspect of the footprint. At this point in time no further work was deemed necessary. The shoulder was thoroughly irrigated and drained with an outflow cannula. The arthroscopic equipment was removed from the shoulder. The arthroscopic portals were then closed with 3-0 nylon interrupted suture. Sterile compressive dressings were applied. The patient's left upper extremity was placed into a standard sling. All sponge and needle counts were deemed correct prior to closure. The patient tolerated procedure without apparent complication. He was transferred to the recovery room in stable condition. BUSHRA / BENJAMINN: [id number] /
[2021-11-04] MEDS ORDERED: HYDROcodone/APAP 10-325MG 1 EACH TAB ONE (10:49)
[2021-11-04] MEDS ORDERED: HYDROcodone/APAP 10-325MG 1 EACH TAB PO ONE (10:50)
[2021-11-04 11:09] VITALS: BP 101/63; PULSE 93
== END 2021-11-04 11:30 | disposition home or self-care (01) ==
LOC: OR 06:26
PROVIDERS: ATTEND Orthopaedic Surgery Sports Medicine
DX: M25.812 Other specified joint disorders, left shoulder (principal); M75.102 Unspecified rotator cuff tear or rupture of left shoulder, not specified as traumatic; S43.432A Superior glenoid labrum lesion of left shoulder, initial encounter; X58.XXXA Exposure to other specified factors, initial encounter; I10 Essential (primary) hypertension; J44.9 Chronic obstructive pulmonary disease, unspecified; E78.5 Hyperlipidemia, unspecified; E11.9 Type 2 diabetes mellitus without complications; J98.4 Other disorders of lung; Z97.3 Presence of spectacles and contact lenses; Z98.890 Other specified postprocedural states; Z83.3 Family history of diabetes mellitus; Z82.49 Family history of ischemic heart disease and other diseases of the circulatory system; Z87.891 Personal history of nicotine dependence; G47.33 Obstructive sleep apnea (adult) (pediatric); Z99.81 Dependence on supplemental oxygen; Z85.6 Personal history of leukemia; M19.90 Unspecified osteoarthritis, unspecified site; Z85.828 Personal history of other malignant neoplasm of skin; Z79.84 Long term (current) use of oral hypoglycemic drugs; Z79.1 Long term (current) use of non-steroidal anti-inflammatories (NSAID); Z79.891 Long term (current) use of opiate analgesic; Z79.51 Long term (current) use of inhaled steroids; Z79.899 Other long term (current) drug therapy; Z88.5 Allergy status to narcotic agent; Z88.8 Allergy status to other drugs, medicaments and biological substances; Z97.2 Presence of dental prosthetic device (complete) (partial)
CPT/HCPCS: 29826; 29827; C1713; J2250; J0330; J1100; J2710; J0690; J2405; J2001; J3010; J1170 ×2; J1885; J2370; J2704

== ENCOUNTER → 2022-08-31 | Outpatient (CLI) | payer MEDICARE ==
[2022-08-31 13:06] VITALS: BP 145/74; PULSE 106; RESP 18; TEMP 97.9
--- NOTE | 2022-08-31 14:15 | P.PAINPG ---
PQRS Measure Charge Sheet Comment: HISTORY OF PRESENT ILLNESS: 61 yr old male as a referral from with a history of C7-T1 ESIs presents today w severe and chronic neck pain secondary to DDD, spondylosis and facet arthropathy without myelopathy for evaluation. Pt states pain level is at 10 /10 in intensity, constant, localized in the lower aspect of the cervical spine, burning, stinging in character w shooting pain towards the BL shoulders and BUEs. Pain is provoked by lifting, carrying, laying supine for periods of 1 hr or more. Pain is alleviated by PT can not be started until he has pain mgmt appt, meds (Neurontin, Ibu, Montgomery), self massage, stretching, repositioning and rest. PMH: OA, DMII, HTN, COPD, HTN, Hyperlipidemia, Sleep Apnea/CPAP/BIPAP PSH: ESIs C7-T1 x2, R Knee ORIF x3, R AJ, Bone Marrow Biopsy SH: Former tobacco use, No ETOH abuse, No illicit drug use FH: Mo- Breast CA. Fa- Brain Aneurysm All: See list Meds: Metformin, Glimipride, Insulin, etc REVIEW OF ORGAN SYSTEMS: CONSTITUTIONAL: No fevers or chills. No recent weight loss. NEUROLOGICAL: + numbness and tingling along the distal extremities. No seizure disorders or headaches. MUSCULOSKELETAL: + pain PSYCHIATRIC: Denies current depression or suicidal thoughts. Physical Examinations : Constitutional : Cooperative , not in acute distress . Neurologic : Cranial nerve II to XII intact. No focal neurological deficits. Psychiatric : alert & oriented x 3. Matching mood & appropriate affect. Judgment & insight intact. Musculoskeletal : Cervical Spine Motor strength in the deltoid and biceps: Normal right side. Normal Left side Motor strength biceps and the wrist extensors: Normal right side . Normal left side Motor strength in the triceps muscle: Normal right side. Normal left side Deep tendon reflexes: Normal at the biceps. Normal at Brachioradialis. Normal at triceps Vertebral body tenderness to deep palpation over C7 Cervical facet loading test: positive bilaterally Spurling test: positive bilaterally Neck distraction test: positive bilaterally Laina sign: positive bilaterally Lumbar spine Motor strength lower extremities ,thigh and legs 5/5 Right side , 5/5 Left side Deep tendon reflexes : Normal Knee Jerk. Normal Ankle Jerk Vertebral body tenderness over Lumbar facet Loading Test: positive Right / positive Left Range of motion of the lumbar spine Flexion 30 degrees, extension 10 degrees Straight Leg Raise test: Left/ Right positive at degree Sam test: positive right / positive left. Severe tenderness over the Sacroiliac joint on the Right / Left sides Gaenslen test: positive bilaterally Seated flexion test: positive bilaterally. Sacral spine : Severe tenderness over the Sacroiliac joint: right side / left side Range of motion: Flexion of the lumbar spine <60 degrees Range of motion: Extension of the lumbar spine <20 degrees Gaenslen's Test positive Michael's Test positive Sam test: positive right side / left side Thigh Thrust Test Sacral Thrust Test Imaging: MRI of the cervical spine without contrast from 2018 reviewed Assessment/ Plan : Cervical DDD Recommendation of cervical x ray Dx: M50.30. May need additional imaging if indicated. May need a series of injections, up to 3 within a 6 mo period, for optimal pain relief. Risks, benefits of procedure discussed and patient verbalized understanding. Admits to aspirin or anti- coagulant use or medical history of diabetes. Protocol for discontinuation/ continuation of medications erica procedure discussed. All questions answered. I have spent greater than 30 minutes on patient care today. Dr Bird was available by phone for the evaluation of this patient. The time was used to review the medical records including relevant urine studies and Prescription history (MAPs), review of the available imaging, evaluation and examination of the patient, coordination of care with the medical staff and if applicable referring physicians, as well as creation of the medical record PQRS Narrative: Smoking Status Former smoker Hx Alcohol Use (MH) No Home Medications: Ambulatory Orders Aspirin 81 mg PO DAILY 06/05/14 Tiotropium 18 Mcg/Puff [Spiriva] 1 puff INHALATION DAILY 06/05/14 amLODIPine BESYLATE [Amlodipine Besylate] 5 mg PO HS 06/05/14 Hydroxyurea [Hydrea] 1,000 mg PO W/SUPPER 06/20/14 Albuterol Inhaler [Ventolin Hfa Inhaler] 1 - 2 puff INHALATION Q6HR PRN 10/03/18 Hydroxyurea 500 mg PO QAM 10/30/18 Mometasone/Formoterol [Dulera 200 Mcg/5 Mcg Inhaler] 2 puff INHALATION QAM 10/30/18 Exenatide Microspheres [Bydureon Pen] 1 injection SQ TU 01/01/19 Ibuprofen [Motrin] 800 mg PO BID 01/01/19 Gabapentin [Neurontin] 300 mg PO BID 08/12/19 metFORMIN HCL [Glucophage] 1,000 mg PO BID 08/12/19 Glimepiride [Amaryl] 8 mg PO HS 04/21/20 Atorvastatin [Lipitor] 10 mg PO HS 11/01/21 HYDROcodone/APAP 7.5-325MG [Mont[place] 7.5-325] 1 tab PO Q4-6H PRN 11/01/21 Olmesartan Medoxomil [Benicar] 40 mg PO DAILY 11/01/21 Docusate [Colace] 100 mg PO BID #60 capsule 11/04/21 Doxycycline Hyclate 100 mg PO BID #10 tab 11/04/21 HYDROcodone/APAP 10-325MG [Mont[place] 10-325] 1 tab PO Q4HR PRN #21 tab 11/04/21 Controlled Substance Measures - Controlled Substance Measures Is patient prescribed a controlled substance at discharge?: No
--- NOTE | 2022-08-31 14:19 | XR ---
EXAMINATION TYPE: XR cervical spine limited DATE OF EXAM: 08/31/2022 1:36 PM INDICATION: Patient age:Male; 61 years old; Reason for study: M54.12 Neck Pain M50.30; [facility]. COMPARISON: Cervical spine radiograph 03/29/2010. TECHNIQUE: The cervical spine was imaged in lateral, frontal, swimmer's, and odontoid projections. FINDINGS: The osseous structures show normal alignment without evidence of an acute fracture. There are osteoph ytes noted throughout the cervical spine on the anterior and lateral aspects of the vertebral bodies. Multilevel intervertebral disc space narrowing demonstrated involving C4-C5 and C5-C6. Mild foramina l encroachment suspected again at C5-C6 bilaterally and right-sided C4-C5. Pedicles are intact. Soft tissues are within normal limits. The odontoid appears intact. IMPRESSION: 1. No fracture or dislocation. 2. Mild degenerative disc disease changes of the cervical spine.
== END ==
LOC: PNWHC3 12:10
PROVIDERS: ATTEND Specialist
DX: M50.30 Other cervical disc degeneration, unspecified cervical region (principal); Z79.82 Long term (current) use of aspirin; Z79.84 Long term (current) use of oral hypoglycemic drugs; Z87.891 Personal history of nicotine dependence; M19.90 Unspecified osteoarthritis, unspecified site; I10 Essential (primary) hypertension; E11.9 Type 2 diabetes mellitus without complications; E78.5 Hyperlipidemia, unspecified; Z79.4 Long term (current) use of insulin; Z88.5 Allergy status to narcotic agent; Z88.8 Allergy status to other drugs, medicaments and biological substances
CPT/HCPCS: 72040; G0463; 99211

== ENCOUNTER 2022-10-27 09:17 | Day surgery (SDC) | payer MEDICARE ==
[2022-10-25 16:25] VITALS: BMI 34.7
[~2022-10-27 09:17] MED LIST changes: -DEXAMETHASONE SOD PHOSPHATE 4 MG/ML 1 ML VIAL IV ONE; +LIDOCAINE 1% (10MG/ML) FOR IV START INTRADERMA PRN; -MIDAZOLAM 2 MG/2 ML VIAL IV PRN; -ONDANSETRON 4 MG/2 ML VIAL IVP ONE; -Pre Op ABX Message 1 EACH MISC MISCELLANE ONE
[2022-10-27 09:38] VITALS: RESP 18; TEMP 97
[2022-10-27 09:46] LABS: Glucose,Whole Blood 92 mg/dL (70-110)
[2022-10-27] MEDS ORDERED: IOPAMIDOL M200 10 ML VIAL ONE (09:56)
[2022-10-27] MEDS ORDERED: DEXAMETHASONE SOD PHOSPHATE 10 MG/ML 1 ML VIAL ONE (09:56)
[2022-10-27] MEDS ORDERED: fentaNYL (PF) 50 MCG/ML 2 ML AMP ONE (09:56)
[2022-10-27] MEDS ORDERED: MIDAZOLAM 2 MG/2 ML VIAL ONE (09:56)
--- NOTE | 2022-10-27 10:08 | P.PCN ---
Date of Procedure: 10/27/22 Procedure(s) Performed: . PROCEDURE 1. Cervical epidural steroid injection under fluoroscopic guidance, C6-7 (fluoroscopy images available in the radiology department ) 2. Cervical epidurogram. PREOPERATIVE DIAGNOSIS: 1- Cervical Degenerative Disc Diseases 2-cervical spondylosis with cervical Facet arthropathy without myelopathy.4-cervical spinal stenosis POSTOPERATIVE DIAGNOSIS: : 1- Cervical Degenerative Disc Diseases , 2-cervical spondylosis with cervical Facet arthropathy without myelopathy. 4-cervical spinal stenosis ANESTHESIA: moderate sedation, with Versed 2 mg and Fentanyl 50 mcg. Sedation start time :1000 Sedation end time :1005 EBL 0 PROCEDURE INDICATION: The patient with neck pain and radiculitis unresponsive to conservative treatment consents for procedure. PROCEDURE DESCRIPTION / TECHNIQUE: The patient was seen and identified in the preoperative area. Risks, benefits, complications, including but not limited to infections ,bleeding , allergic reactions to the medications ,and not complete pain releife, and alternatives were discussed with the patient, the patient agreed to proceed with the procedure and signed the consent. Patient was taken to the OR and time out was completed. The patient was placed in the prone position on the procedure table. A pillow was placed under the patients chest to increase the cervical interlaminar space. The cervical area was prepped and draped in the usual sterile fashion. Vital signs were closely monitored during the procedure. Conscious sedation was used during the procedure to decrease patients anxiety. Using anterior-posterior fluoroscopy, the C6-7 interlaminar space was identified and the skin over this site was marked and then infiltrated with 1% lidocaine subcutaneously. Subsequently, a 20-gauge 3-1/2-inch Tuohy epidural needle was inserted and advanced toward the epidural space by means of the ``hanging-drop technique and guided by AP and lateral fluoroscopy. The correct needle position in the epidural space was verified with the injection of 2 mL of the water soluble contrast dye [id number]-200 and observing an excellent epidurogram with the epidural spread of the dye, after negative aspiration for blood and CSF and in the absence of paresthesias. then, mixture containing 15 mg Dexamethasone and 2 ml of preservative-free normal saline injected and a washout of epidurogram was seen. Needle was withdrawn intact, skin was cleansed, and bandages were applied. Complications= none. Disposition= patient was placed in supine position and transferred to the recovery room area in stable condition and there was no evidence of upper or lower extremity motor or sensory deficit after the procedure patient was discharged from recovery room after discharge criteria met and home discharge instructions was given by the staff and patient will follow with the pain clinic in 2-4 weeks
[2022-10-27] MEDS ORDERED: LACTATED RINGERS 1,000 ML IV ONE (10:10)
[2022-10-27 10:27] VITALS: BP 98/63; PULSE 73
--- NOTE | 2022-10-27 10:28 | FL ---
Intraoperative/procedural fluoroscopic services were provided for cervical epidural steroid injection . Total fluoroscopy time is 2 seconds with a total of 1 submitted image to PACS. Total DAP [id number]. P luh see the operative note for further details.
== END 2022-10-27 10:42 | disposition home or self-care (01) ==
LOC: ORPAIN 09:17
PROVIDERS: ATTEND Specialist
DX: M50.123 Cervical disc disorder at C6-C7 level with radiculopathy (principal); M47.22 Other spondylosis with radiculopathy, cervical region; M48.02 Spinal stenosis, cervical region; Z88.8 Allergy status to other drugs, medicaments and biological substances
CPT/HCPCS: 62321; J2250; J1100; J3010; Q9966

== ENCOUNTER → 2022-11-14 | Outpatient (CLI) | payer MEDICARE ==
[2022-11-14 12:47] VITALS: BP 108/74; PULSE 91; RESP 18; TEMP 97.6
--- NOTE | 2022-11-14 16:29 | P.PAINPG ---
PQRS Measure Charge Sheet Comment: A 61 yr old male with a history of severe and chronic neck pain secondary to cervical DDD and spondylosis with facet arthropathy without myelopathy presents today for evaluation s/p NAY C6-C7. Pt states he experienced 0 % pain relief x 2-3 wks s/p procedure. Pain level is provoked at 2 /10 in intensity, constant, localized in the cervical spine, tender in character w shooting towards the BL hands. Pain is provoked by lateral flexion and rotation. Pain is alleviated with PT x 4 sessions in Aug- Oct 2022, heat, ice, medications, laying supine, repositioning and rest. Interventional pain procedures completed include NAY C6-C7 Patient is currently on Wayne, Neurontin Patient denies any side effects of the medication(s), denies excessive drowsiness or sleepiness, denies suicidal ideation and reports that the current pain medication is helping to control the pain and improve activities of daily living. Patient denies any motor or sensory deficits. Patient denies any fever or night sweats, denies any change in the bowel movements or urination. Physical Examination: -Constitutional: Cooperative. Not in acute distress . - Neurologic: Cranial nerve II to XII intact. No focal neurological deficits. - Psychatric: Alert & oriented x 3. Matching mood & appropriate affect. Judgment and insight intact. - Musculoskeletal: Cervical spine: Muscle bulk/ tone/ strength in the bilateral upper extremities normal Vertebral body tenderness to palpation over Spurling test positive Distraction test positive Facet loading test positive TTP Thoracic spine Muscle bulk / tone/ strength in the bilateral paraspinal muscles normal Vertebral body tender to palpation over Facet loading test positive TTP Lumbar spine: Motor bulk/ tone/ strength lower extremities , thigh and legs : 5/5 Deep tendon reflexes : Normal Knee Jerk. Normal Ankle Jerk . Vertebral body tenderness to palpation over Lumbar Facet Loading Test positive Straight Leg Raise: positive at 30 degrees right side/ left side Gaenslen's Test positive Sacral spine : Severe tenderness over the Sacroiliac joint: right side / left side Range of motion: Flexion of the lumbar spine <60 degrees Range of motion: Extension of the lumbar spine <20 degrees Gaenslen's Test positive R / L Sam test: positive right side / left side Thigh Thrust Test positive R / L Sacral Thrust Test positive R/ L Assessment and plan: Chronic neck pain secondary to cervical DDD, spondylosis with facet arthropathy without myelopathy Pt wants to follow up with an orthopedic surgeon to explore his additional treatment options. Risks, benefits of procedure discussed and pt verbalized understanding. Admits to anticoagulant use or medical history of diabetes. Protocol for discontinuation/ continuation of medications erica procedure discussed. All questions answered. I have spent less than 30 minutes on patient care today. Dr Bird was available by phone for the evaluation of this patient. The time was used to review the medical records including relevant urine studies and Prescription history (MAPs), review of the available imaging, evaluation and examination of the patient, coordination of care with the medical staff and if applicable referring physicians, as well as creation of the medical record PQRS Narrative: Smoking Status Former smoker Hx Alcohol Use (MH) No Home Medications: Ambulatory Orders Aspirin 81 mg PO DAILY 06/05/14 Tiotropium 18 Mcg/Puff [Spiriva] 1 puff INHALATION DAILY 06/05/14 amLODIPine BESYLATE [Amlodipine Besylate] 5 mg PO HS 06/05/14 Hydroxyurea [Hydrea] 1,000 mg PO W/SUPPER 06/20/14 Albuterol Inhaler [Ventolin Hfa Inhaler] 1 - 2 puff INHALATION Q6HR PRN 10/03/18 Hydroxyurea 500 mg PO QAM 10/30/18 Mometasone/Formoterol [Dulera 200 Mcg/5 Mcg Inhaler] 2 puff INHALATION QAM 10/30/18 Gabapentin [Neurontin] 300 mg PO BID 08/12/19 metFORMIN HCL [Glucophage] 1,000 mg PO BID 08/12/19 Glimepiride [Amaryl] 8 mg PO HS 04/21/20 Atorvastatin [Lipitor] 10 mg PO HS 11/01/21 HYDROcodone/APAP 7.5-325MG [[place] 7.5-325] 1 tab PO Q4-6H PRN 11/01/21 Olmesartan Medoxomil [Benicar] 40 mg PO DAILY 11/01/21 Controlled Substance Measures - Controlled Substance Measures Is patient prescribed a controlled substance at discharge?: No
== END ==
LOC: PNWHC3 12:14
PROVIDERS: ATTEND Specialist
DX: M50.30 Other cervical disc degeneration, unspecified cervical region (principal); M47.812 Spondylosis without myelopathy or radiculopathy, cervical region; G89.29 Other chronic pain; Z87.891 Personal history of nicotine dependence; Z79.82 Long term (current) use of aspirin; Z88.8 Allergy status to other drugs, medicaments and biological substances
CPT/HCPCS: 99211

== ENCOUNTER → 2023-01-18 | Outpatient (CLI) | payer MEDICARE ==
--- NOTE | 2023-01-18 16:31 | XR ---
EXAMINATION TYPE: XR chest 2V DATE OF EXAM: 01/18/2023 COMPARISON: 06/23/2014 HISTORY: Shortness of breath TECHNIQUE: Frontal and lateral views of the chest are obtained. FINDINGS: Scattered senescent parenchymal changes noted. Hyperinflation compatible with COPD. No evidence for infiltrate. No evidence for atelectasis. Heart size is stable. Mediastinal structures are stable and grossly unremarkable. No evidence for hilar prominence. Degenerative changes dorsal spine. IMPRESSION: 1. No evidence for acute pulmonary disease.
== END | disposition home or self-care (01) ==
LOC: RADXRYALE 16:13
PROVIDERS: ATTEND Neurological Surgery
DX: R06.02 Shortness of breath (principal); M48.02 Spinal stenosis, cervical region
CPT/HCPCS: 71046

== ENCOUNTER 2023-03-13 23:46 | Emergency (ER) | payer MEDICARE ==
[2023-03-13 23:51] VITALS: RESP 18
[2023-03-13 23:52] LABS: Glucose,Whole Blood 66 mg/dL (70-110)
--- NOTE | 2023-03-14 00:16 | ED ---
General Adult HPI - General Chief complaint: Recheck/Abnormal Lab/Rx Stated complaint: Fluctuating blood sugar Time Seen by Provider: 03/13/23 23:56 Source: patient, RN notes reviewed, old records reviewed Mode of arrival: ambulatory Limitations: no limitations - History of Present Illness Initial comments: 62-year-old male with type 2 diabetes presents for fluctuating blood sugar, stating that he's had multiple episodes of hypoglycemia over the past 24 hours. He states his sugars as low as 39 which was associated with not feeling well and diaphoresis. The patient is currently on glimepiride and metformin. He states he took his glimepiride most recently 31 hours ago. Patient states he has been eating. - Related Data Home Medications Medication Instructions Recorded Confirmed Aspirin 81 mg PO DAILY 06/05/14 10/27/22 Tiotropium 18 Mcg/Puff [Spiriva] 1 puff INHALATION DAILY 06/05/14 10/27/22 amLODIPine BESYLATE [Amlodipine 5 mg PO HS 06/05/14 10/27/22 Besylate] Hydroxyurea [Hydrea] 1,000 mg PO W/SUPPER 06/20/14 10/27/22 Albuterol Inhaler [Ventolin Hfa 1 - 2 puff INHALATION Q6HR PRN 10/03/18 10/27/22 Inhaler] Hydroxyurea 500 mg PO QAM 10/30/18 10/27/22 Mometasone/Formoterol [Dulera 200 2 puff INHALATION QAM 10/30/18 10/27/22 Mcg/5 Mcg Inhaler] Gabapentin [Neurontin] 300 mg PO BID 08/12/19 10/27/22 metFORMIN HCL [Glucophage] 1,000 mg PO BID 08/12/19 10/27/22 Glimepiride [Amaryl] 8 mg PO HS 04/21/20 10/27/22 Atorvastatin [Lipitor] 10 mg PO HS 11/01/21 10/27/22 HYDROcodone/APAP 7.5-325MG [[place] 1 tab PO Q4-6H PRN 11/01/21 10/27/22 7.5-325] Olmesartan Medoxomil [Benicar] 40 mg PO DAILY 11/01/21 10/27/22 Allergies Allergy/AdvReac Type Severity Reaction Status Date / Time varenicline [From Chantix] AdvReac bizarrjason Verified 03/13/23 23:51 dreams, mood swings Review of Systems ROS Statement: Those systems with pertinent positive or pertinent negative responses have been documented in the HPI. ROS Other: All systems not noted in ROS Statement are negative. Past Medical History Past Medical History: Cancer, COPD, Diabetes Mellitus, Hypertension, Musculoskeletal Disorder, Osteoarthritis (OA), Skin Disorder, Sleep Apnea/CPAP/BIPAP Additional Past Medical History / Comment(s): STATES HE SEES DR VIEIRA FOR HIS WBC'S, "pre-leukemia", uses O2 @[facility] only, uses CPAP, hx. squamous cell skin cancer on face, chronic neck pain, this surgery was originally scheduled @surgery center @[facility] but moved here due to his COPD History of Any Multi-Drug Resistant Organisms: None Reported Past Surgical History: Joint Replacement, Orthopedic Surgery Additional Past Surgical History / Comment(s): BONE MARROW BX. ORIF RIGHT KNEE X3, TOTAL RIGHT HIP REPLACEMENT, PAIN CLINIC PROCEDURES., surgery to remove skin cancer, LEFT SHOULDER SURGERY Past Anesthesia/Blood Transfusion Reactions: No Reported Reaction Additional Past Anesthesia/Blood Transfusion Reaction / Comment(s): had a reaction to morphine in past Past Psychological History: No Psychological Hx Reported Smoking Status: Former smoker Past Alcohol Use History: None Reported Past Drug Use History: None Reported - Past Family History Mother Family Medical History: Cancer Additional Family Medical History / Comment(s): BREAST CANCER. Father Additional Family Medical History / Comment(s): BRAIN ANEURYSM. General Exam Limitations: no limitations General appearance: alert, in no apparent distress Head exam: Present: atraumatic, normocephalic Eye exam: Present: normal appearance, PERRL ENT exam: Present: normal exam Neck exam: Present: normal inspection. Absent: tenderness, meningismus Respiratory exam: Present: normal lung sounds bilaterally. Absent: respiratory distress, wheezes Cardiovascular Exam: Present: regular rate, normal rhythm GI/Abdominal exam: Present: soft. Absent: distended, tenderness Extremities exam: Present: normal inspection, normal capillary refill Neurological exam: Present: alert, oriented X3, CN II-XII intact Psychiatric exam: Present: normal affect, normal mood Skin exam: Present: warm, dry Course Vital Signs 03/13/23 23:47 Temperature 98.5 F Pulse Rate 73 Respiratory 18 Rate Blood Pressure 134/66 O2 Sat by Pulse 96 Oximetry Medical Decision Making - Medical Decision Making Was pt. sent in by a medical professional or institution (, [facility], [facility], urgent care, hospital, or shelter...) When possible be specific @ -No Did you speak to anyone other than the patient for history (EMS, parent, family, police, friend...)? What history was obtained from this source @ -No Did you review nursing and triage notes (agree or disagree)? Why? @ -I reviewed and agree with nursing and triage notes Were old charts reviewed (outside hosp., previous admission, EMS record, old EKG, old radiological studies, urgent care reports/EKG's, shelter records)? Report findings @ -No old charts were reviewed Differential Diagnosis (chest pain, altered mental status, abdominal pain women, abdominal pain men, vaginal bleeding, weakness, fever, dyspnea, syncope, headache, dizziness, GI bleed, back pain, seizure, CVA, palpatations, mental health, musculoskeletal)? @ Hypoglycemia secondary to oral hypoglycemic agents EKG interpreted by me (3pts min.). @ -As above X-rays interpreted by me (1pt min.). @ -None done CT interpreted by me (1pt min.). @ -None done U/S interpreted by me (1pt. min.). @ -None done What testing was considered but not performed or refused? (CT, X-rays, U/S, labs)? Why? @ -None What meds were considered but not given or refused? Why? @ -None Did you discuss the management of the patient with other professionals (professionals i.e. , [facility], [facility], lab, RT, psych nurse, family welfare social work professor, informatics specialist, teacher, procurement officer, case fitter)? Give summary @ -No Was smoking cessation discussed for >3mins.? @ -No Was critical care preformed (if so, how long)? @ -No Were there social determinants of health that impacted care today? How? (Homelessness, low income, unemployed, alcoholism, drug addiction, transportation, low edu. Level, literacy, decrease access to med. care, halfway, rehab)? @ -No Was there de-escalation of care discussed even if they declined (Discuss DNR or withdrawal of care, Hospice)? DNR status @ -No What co-morbidities impacted this encounter? (DM, HTN, Smoking, COPD, CAD, Cancer, CVA, ARF, Chemo, Hep., AIDS, mental health diagnosis, sleep apnea, morbid obesity)? @ -[Diabetes Was patient admitted / discharged? Hospital course, mention meds given and route, prescriptions, significant lab abnormalities, going to OR and other pertinent info. @ -62-year-old male with hypoglycemia. Sugar is initially in the 50s and the patient is minimally symptomatic. He's able to tolerate food in the emergency department and sugar does normalize and stabilize. He will monitor sugar closely at home and discontinue his glimepiride. Undiagnosed new problem with uncertain prognosis? @ -No Drug Therapy requiring intensive monitoring for toxicity (Heparin, Nitro, Insulin, Cardizem)? @ -No Were any procedures done? @ -No Diagnosis/symptom? @ -Hypoglycemia secondary to medication effect Acute, or Chronic, or Acute on Chronic? @ -Acute Uncomplicated (without systemic symptoms) or Complicated (systemic symptoms)? @ -default Side effects of treatment? @ -No Exacerbation, Progression, or Severe Exacerbation? @ -No Poses a threat to life or bodily function? How? (Chest pain, [place], ME, pneumonia, PE, COPD, DKA, ARF, appy, cholecystitis, CVA, Diverticulitis, Homicidal, Suicidal, threat to staff... and all critical care pts) @ -[Yes, prolonged hypoglycemia - Lab Data Result diagrams: 03/14/23 00:19 03/14/23 00:19 Lab Results 03/13/23 03/14/23 03/14/23 Range/Units 23:50 00:19 00:19 WBC 4.3 (3.8-10.6) k/uL RBC 2.31 L (4.30-5.90) m/uL Hgb 10.1 L (13.0-17.5) gm/dL Hct 29.5 L (39.0-53.0) % MCV 127.6 H (80.0-100.0) fL MCH 43.1 H (25.0-35.0) pg MCHC 34.2 (31.0-37.0) g/dL RDW 15.9 H (11.5-15.5) % Plt Count 234 (150-450) k/uL MPV 7.5 Neutrophils % (Manual) 63 % Lymphocytes % (Manual) 24 % Monocytes % (Manual) 13 % Neutrophils # (Manual) 2.71 (1.3-7.7) k/uL Lymphocytes # (Manual) 1.03 (1.0-4.8) k/uL Monocytes # (Manual) 0.56 (0-1.0) k/uL Nucleated RBCs 0 (0-0) /100 WBC Manual Slide Review Performed Hypersegmented Neuts Present Polychromasia Present Poikilocytosis Moderate Anisocytosis (manual) Present Macrocytosis Marked A Sodium 138 (137-145) mmol/L Potassium 4.5 (3.5-5.1) mmol/L Chloride 105 (98-107) mmol/L Carbon Dioxide 24 (22-30) mmol/L Anion Gap 9 mmol/L BUN 19 (9-20) mg/dL Creatinine 0.85 (0.66-1.25) mg/dL Est GFR (CKD-EPI)AfAm >90 (>60 ml/min/1.73 sqM) Est GFR (CKD-EPI)NonAf >90 (>60 ml/min/1.73 sqM) Glucose 55 L (74-99) mg/dL POC Glucose (mg/dL) 66 L (70-110) mg/dL POC Glu Psychologist Counseling ID Leanna Wagoner Calcium 9.3 (8.4-10.2) mg/dL Total Bilirubin 1.0 (0.2-1.3) mg/dL AST 35 (17-59) U/L ALT 27 (4-49) U/L Alkaline Phosphatase 100 (38-126) U/L Total Protein 7.1 (6.3-8.2) g/dL Albumin 4.3 (3.5-5.0) g/dL 03/14/23 03/14/23 Range/Units 01:25 02:09 WBC (3.8-10.6) k/uL RBC (4.30-5.90) m/uL Hgb (13.0-17.5) gm/dL Hct (39.0-53.0) % MCV (80.0-100.0) fL MCH (25.0-35.0) pg MCHC (31.0-37.0) g/dL RDW (11.5-15.5) % Plt Count (150-450) k/uL MPV Neutrophils % (Manual) % Lymphocytes % (Manual) % Monocytes % (Manual) % Neutrophils # (Manual) (1.3-7.7) k/uL Lymphocytes # (Manual) (1.0-4.8) k/uL Monocytes # (Manual) (0-1.0) k/uL Nucleated RBCs (0-0) /100 WBC Manual Slide Review Hypersegmented Neuts Polychromasia Poikilocytosis Anisocytosis (manual) Macrocytosis Sodium (137-145) mmol/L Potassium (3.5-5.1) mmol/L Chloride (98-107) mmol/L Carbon Dioxide (22-30) mmol/L Anion Gap mmol/L BUN (9-20) mg/dL Creatinine (0.66-1.25) mg/dL Est GFR (CKD-EPI)AfAm (>60 ml/min/1.73 sqM) Est GFR (CKD-EPI)NonAf (>60 ml/min/1.73 sqM) Glucose (74-99) mg/dL POC Glucose (mg/dL) 97 125 H (70-110) mg/dL POC Glu Psychologist Counseling ID Charles, [place] Charles, [place] Calcium (8.4-10.2) mg/dL Total Bilirubin (0.2-1.3) mg/dL AST (17-59) U/L ALT (4-49) U/L Alkaline Phosphatase (38-126) U/L Total Protein (6.3-8.2) g/dL Albumin (3.5-5.0) g/dL Disposition Clinical Impression: Hypoglycemia Disposition: HOME SELF-CARE Condition: Fair Instructions (If sedation given, give patient instructions): Hypoglycemia in a Person with Diabetes (DC) Additional Instructions: Please discontinue the glimepiride and monitor sugars closely. Is patient prescribed a controlled substance at d/c from ED?: No Referrals: Lizzeth Bauman DO [Primary Care Provider] - 1-2 days Time of Disposition: 02:14
[2023-03-14 01:08] LABS: HCT 29.5 % (39.0-53.0); MCV 127.6 fL (80.0-100.0); Macrocytosis Marked; Mean Platelet Volume 7.5; Platelet Count 234 k/uL (150-450); Poikilocytosis Moderate; RBC 2.31 m/uL (4.30-5.90); RDW 15.9 % (11.5-15.5); WBC 4.3 k/uL (3.8-10.6)
[2023-03-14 01:11] LABS: HGB 10.1 gm/dL (13.0-17.5); MCH 43.1 pg (25.0-35.0); MCHC 34.2 g/dL (31.0-37.0)
[2023-03-14 01:19] LABS: ALT 27 U/L (4-49); AST 35 U/L (17-59); African American GFR (CKD) >90 (>60 ml/min/1.73 sqM); Albumin 4.3 g/dL (3.5-5.0); Alkaline Phosphatase 100 U/L (38-126); Anion Gap 9 mmol/L; Blood Urea Nitrogen 19 mg/dL (9-20); Calcium 9.3 mg/dL (8.4-10.2); Carbon Dioxide 24 mmol/L (22-30); Chloride 105 mmol/L (98-107); Glucose 55 mg/dL (74-99); Non-African American GFR(CKD) >90 (>60 ml/min/1.73 sqM); Potassium 4.5 mmol/L (3.5-5.1); Sodium 138 mmol/L (137-145); Total Protein 7.1 g/dL (6.3-8.2)
[2023-03-14 01:23] LABS: Anisocytosis (M) Present; Hypersegmented Neutrophils Present; Lymphocytes # (M) 1.03 k/uL (1.0-4.8); Monocytes # (M) 0.56 k/uL (0-1.0); Neutrophils # (M) 2.71 k/uL (1.3-7.7); Neutrophils % (M) 63 %; Nucleated Red Blood Cells 0 /100 WBC (0-0); Polychromasia Present; Total Cells Counted 100
[2023-03-14 01:26] LABS: Glucose,Whole Blood 97 mg/dL (70-110)
[2023-03-14 02:10] LABS: Glucose,Whole Blood 125 mg/dL (70-110)
[2023-03-14 02:27] VITALS: BP 149/91; PULSE 85; TEMP 98.1
== END 2023-03-14 02:27 | disposition home or self-care (01) ==
LOC: EC 23:46
DX: E11.649 Type 2 diabetes mellitus with hypoglycemia without coma (principal); I10 Essential (primary) hypertension; J44.9 Chronic obstructive pulmonary disease, unspecified; G47.30 Sleep apnea, unspecified; M19.90 Unspecified osteoarthritis, unspecified site; Z79.51 Long term (current) use of inhaled steroids; Z79.82 Long term (current) use of aspirin; Z79.84 Long term (current) use of oral hypoglycemic drugs; Z79.899 Other long term (current) drug therapy; Z87.891 Personal history of nicotine dependence; Z88.8 Allergy status to other drugs, medicaments and biological substances
CPT/HCPCS: 36415; 80053; 85025; 99283

== ENCOUNTER → 2023-05-25 | Outpatient (CLI) | payer MEDICARE ==
--- NOTE | 2023-05-25 13:44 | XR ---
EXAM TYPE: LUMBAR SPINE X RAY SERIES COMPARISON: NONE HISTORY: Pain TECHNIQUE: 4 views are submitted. FINDINGS: Alignment is anatomic. The pedicles are intact. The transverse processes are intact. There is diff use osteopenia with multilevel mild degenerative disc disease. There is more advanced facet arthropat hy L4-L5 and suspected foraminal encroachment. Hip replacement surgery noted. No evidence of spondylo lysis or spondylolisthesis. IMPRESSION: 1. Facet arthropathy particularly noted at L4-5 and L5-S1. Suspect foraminal encroachment.
== END | disposition home or self-care (01) ==
LOC: RADXRYALE 13:15
PROVIDERS: ATTEND Nurse Practitioner
DX: M47.816 Spondylosis without myelopathy or radiculopathy, lumbar region (principal); M47.817 Spondylosis without myelopathy or radiculopathy, lumbosacral region
CPT/HCPCS: 72110

== ENCOUNTER 2023-06-27 06:28 | Day surgery (SDC) | payer MEDICARE ==
[~2023-06-27 06:28] MED LIST changes: -LIDOCAINE 1% (10MG/ML) FOR IV START INTRADERMA PRN
[2023-06-27 07:28] LABS: Glucose,Whole Blood 99 mg/dL (70-110)
[2023-06-27 07:29] VITALS: TEMP 97.9
[2023-06-27] MEDS ORDERED: PROPOFOL 10 MG/ML 20 ML VIAL IV ONE (07:43)
[2023-06-27] MEDS ORDERED: IV FLUID CONTINUATION 1,000 ML IV ONE (07:56)
--- NOTE | 2023-06-27 08:00 | P.PCN ---
Date of Procedure: 06/27/23 Procedure(s) Performed: BRIEF HISTORY: Patient is a 62-year-old pleasant white male scheduled for an elective colonoscopy as a part of screening for colon cancer/positive cologuard. PROCEDURE PERFORMED: Colonoscopy with snare polypectomy and biopsy. PREOPERATIVE DIAGNOSIS: Screening for colon cancer/positive cologuard. IV sedation per Anesthesia. PROCEDURE: After informed consent was obtained, the patient, was brought into the endoscopy unit. IV sedation was administered by Anesthesia under continuous monitoring. Digital rectal examination was normal. Initially the Olympus CF-160 flexible video colonoscope was then inserted in the rectum, gradually advanced into the cecum without any difficulty. Careful examination was performed as the scope was gradually being withdrawn. Ileocecal valve and the appendiceal orifice were visualized and appeared normal. Prep was excellent. Mucosa of the cecum, appeared normal. In the ascending colon there was a 3 mm sessile polyp that was removed by cold biopsy. In the hepatic flexure there was a 7 mm diminutive millimeters broad-based polyp removed by cold snare polypectomy. Rest of the ascending colon, transverse colon, descending colon, appeared normal. In the sigmoid colon there was a 6 minute a polyp that was removed by cold snare polyp rectum he. Rest of the sigmoid colon, and rectum appeared normal. Retroflexion was performed in the rectum and no lesions were seen. The patient tolerated the procedure well. IMPRESSION: 3 mm ascending colon polyp status post cold biopsy 7 mm and 8 mm hepatic flexure Polyp status post cold snare polypectomy 6 mm sigmoid polyp status post cold snare polypectomy RECOMMENDATIONS: Findings of this examination were discussed with the patient as well as his family. He was advised to follow up with the biopsy results. If the biopsy reveals adenoma he can have a repeat colonoscopy in 3 years..
[2023-06-27 08:55] VITALS: BP 133/78; PULSE 78; RESP 18
== END 2023-06-27 08:53 | disposition home or self-care (01) ==
LOC: ORWHC2ENDO 06:28
PROVIDERS: ATTEND Internal Medicine Gastroenterology
DX: Z12.11 Encounter for screening for malignant neoplasm of colon (principal); D12.2 Benign neoplasm of ascending colon; D12.5 Benign neoplasm of sigmoid colon; D12.3 Benign neoplasm of transverse colon; R19.5 Other fecal abnormalities; Z86.010 Personal history of colon polyps; I10 Essential (primary) hypertension; J44.9 Chronic obstructive pulmonary disease, unspecified; G47.33 Obstructive sleep apnea (adult) (pediatric); M19.90 Unspecified osteoarthritis, unspecified site; Z88.9 Allergy status to unspecified drugs, medicaments and biological substances; Z88.5 Allergy status to narcotic agent; Z79.899 Other long term (current) drug therapy
CPT/HCPCS: 45380; 45385; 88305; J2704

== ENCOUNTER → 2023-10-30 | Outpatient (CLI) | payer MEDICARE ==
--- NOTE | 2023-10-30 12:59 | CT ---
EXAMINATION TYPE: CT sinus wo con DATE OF EXAM: 10/30/2023 COMPARISON: None HISTORY: CHRONIC MAXILLARY SINUSITIS CT DLP: 606 mGycm. Automated Exposure Control for Dose Reduction was Utilized. TECHNIQUE: CT scan of the sinuses is performed without contrast, axial images are obtained, coronal r eformatted images are also reviewed. FINDINGS: The paranasal sinuses including the frontal, ethmoid, sphenoid, and maxillary sinuses bila terally are well-aerated without abnormal opacification. There are no air-fluid levels to suggest ac oscar sinusitis. There are no mucous retention cysts or polyps. The ostiomeatal complex is patent bilat erally on the coronal images. Visualized portion of mastoid air cells show no abnormal opacification. The globes are intact bilate rally. IMPRESSION: The sinuses are clear and the ostiomeatal complex is patent bilaterally.
== END | disposition home or self-care (01) ==
LOC: RADCTMAIN 12:23
PROVIDERS: ATTEND Otolaryngology
DX: J32.0 Chronic maxillary sinusitis (principal)
CPT/HCPCS: 70486

== ENCOUNTER 2023-12-27 06:35 | Day surgery (SDC) | payer MEDICARE ==
[~2023-12-27 06:35] MED LIST changes: -LACTATED RINGERS 1,000 ML IV SCH; +LIDOCAINE 1% (10MG/ML) FOR IV START INTRADERMA PRN; +droPERidol 5 MG/2 ML VIAL IVP ONE
[2023-12-27] MEDS: OXYMETAZOLINE 0.05% NASL SPRAY 1 SPRAY BOTTLE EA NOSTRIL PRN (07:19)
[2023-12-27] MEDS: LACTATED RINGERS 1,000 ML IV SCH (07:30)
[2023-12-27] MEDS: ONDANSETRON 4 MG/2 ML VIAL IVP ONE (07:40)
[2023-12-27] MEDS: FAMOTIDINE 20 MG/2 ML VIAL IV PRN (07:40)
[2023-12-27] MEDS: DEXAMETHASONE SOD PHOSPHATE 4 MG/ML 1 ML VIAL IV ONE (07:40)
[2023-12-27 07:46] LABS: Glucose,Whole Blood 119 mg/dL (70-110)
[2023-12-27] MEDS ORDERED: PROPOFOL 10 MG/ML 20 ML VIAL IV ONE (08:06)
[2023-12-27] MEDS ORDERED: SUCCINYLCHOLINE CHLORIDE 200 MG/10 ML VIAL IV ONE (08:06)
[2023-12-27] MEDS ORDERED: LIDOCAINE 1% INJ 10MG/ML (20 ML MDV) ONE (08:06)
[2023-12-27] MEDS ORDERED: fentaNYL (PF) 50 MCG/ML 2 ML AMP ONE (08:06)
[2023-12-27] MEDS ORDERED: MIDAZOLAM 2 MG/2 ML VIAL ONE (08:06)
[2023-12-27] MEDS ORDERED: PHENYLEPHRINE 10 MG/ML VIAL ONE (08:06)
[2023-12-27] MEDS: LIDOCAINE 1%-EPI 1:100,000 20 ML VIAL SUBMUCOSAL ONE ×2 (08:22)
[2023-12-27] MEDS: BACITRACIN ZINC 500 UNIT/GM OINT 28.4 GM TUBE TOPICAL ONE (08:32)
--- NOTE | 2023-12-27 09:24 | P.OP ---
Date of Procedure: 12/27/23 Preoperative Diagnosis: deviated nasal septum Inferior turbinate hypertrophy Chronic sinusitis Postoperative Diagnosis: same Procedure(s) Performed: septoplasty Outfracture and submucous resection of the inferior turbinates I lateral endoscopic sinus surgery including bilateral maxillary antrostomy and bilateral anterior ethmoidectomy Anesthesia: JOEL Surgeon: Anselmo Talbot Estimated Blood Loss (ml): 10 Pathology: other (nasal septal bone and cartilage and sinus contents) Condition: stable Disposition: PACU Indications for Procedure: this 62-year-old white male whose had difficulties with chronic nasal airway obstruction bilaterally left greater than right as well as chronic anterior and posterior nasal drainage he has notable CT evidence of chronic sinusitis especially in the ethmoid areas as well as deviated septum and inferior turbinate hypertrophy on CT as well as on physical exam Operative Findings: nasal septum deviated to the left inferior turbinate hypertrophy bilaterally the maxillary ostia were obstructed bilaterally mild mucosal thickening in the maxillary sinuses. Mild mucosal thickening in the ethmoid air cells bilaterally Description of Procedure: The patient was brought into the operative suite and placed in a supine position. The patient underwent induction of general anesthesia with oral endotracheal intubation without difficulty. The patient was prepped and draped in the usual aseptic fashion with the orbits in the operating field for monitoring to the case and the computed tomography scan was on the computer screen for review throughout the case. 1% lidocaine with 1 :100,000 epinephrine was infused submucosally into both sides of the nasal septum as well as the lateral nasal wall and anterior tips of the middle turbinates. While this was taking vasoconstrictive effect the in ferior turbinates were infractured with Otero elevator and partial submucous resection of the inferior turbinates was performed with a portion of the submucosal soft tissue and the inferior turbinate bone removed with Coblation device. The inferior turbinates were then outfractured with the Otero elevator. A left hemitransfixion incision was then made with the mucoperichondrial and mucoperiosteal flap on the left elevated. The bony cartilaginous junction was disarticulated and the mucoperiosteal flap on the right was elevated. Bony nasal septal deformities were removed with Monet forceps and an inferior cartilaginous strip was removed leaving a full 1.5 cm caudal strut. Checking intranasally this corrected the nasoseptal deformities and the hemitransfixion incision was closed with a running 4-0 chromic suture. Full 0 endoscopic examination is performed bilaterally. Beginning on the left, the middle turbinate was medialized. The maxillary ostium was located with a ballpoint probe and an infundibulotomy was performed followed by uncinectomy. The maxillary antrostomy was enlarged at the expense of the anterior and posterior fontanelle taking care anteriorly not to injure the lacrimal bone. The maxillary sinus was evaluated with 30 and 70 endoscope Anterior ethmoidectomy was then performed from anterior to posterior to the level of the skull base. The roof of the anterior ethmoid air cells were then cleaned from posterior to anterior using up-biting Blakesley forceps. attention was turned to the right and the procedures were followed as they were on the left including medialization middle turbinate, infundibulotomy, uncinectomy, maxillary antrostomy with exploration and anterior ethmoidectomy. [Nasopore nasal dressing was placed in the middle meatus bilaterally under direct visualization]. Bilateral Arreola airway splints coated with bacitracin ointment were placed and sutured transseptally with a 4-0 nylon suture. The patient was suctioned in oral gastric fashion and was allowed to emerge from general anesthesia having tolerated procedure well and was extubated in the operating suite and transferred to the postoperative recovery area in satisfac tory condition.
[2023-12-27 09:44] VITALS: TEMP 97.2
[2023-12-27] MEDS: HYDROmorphone 0.5 MG/0.5 ML SYRINGE IVP PRN (09:57)
[2023-12-27] MEDS: LABETALOL 5 MG/ML VIAL MDV IVP ONE ×2 (10:14→10:51)
[2023-12-27 11:38] VITALS: RESP 20
[2023-12-27] MEDS ORDERED: HYDROcodone/APAP 5-325MG 1 EACH TAB ONE (12:00)
[2023-12-27] MEDS: HYDROcodone/APAP 5-325MG 1 EACH TAB PO ONE (12:05)
[2023-12-27 12:35] VITALS: BP 134/79; PULSE 61
== END 2023-12-27 12:32 | disposition home or self-care (01) ==
LOC: OR 06:35
PROVIDERS: ATTEND Otolaryngology
DX: J34.2 Deviated nasal septum (principal); J32.2 Chronic ethmoidal sinusitis; J34.3 Hypertrophy of nasal turbinates; J32.9 Chronic sinusitis, unspecified; J44.89 Other specified chronic obstructive pulmonary disease; G47.33 Obstructive sleep apnea (adult) (pediatric); Z79.899 Other long term (current) drug therapy; Z88.8 Allergy status to other drugs, medicaments and biological substances
CPT/HCPCS: 31254; 30520; 31256; 88305; 88300; J2250; J0330; J1100; J0690; J2405; J2001; J3010; J3490; J2704; J1170; J2371; J1920